=== PATIENT | female | born 1950 | race Caucasian/White ===

== ENCOUNTER 2017-05-17 06:07 | Emergency (ER) | payer BC ==
[~2017-05-17] VITALS: Ht 160 cm; Wt 76.2 kg
[~2017-05-17 06:07] MED LIST: ANASTROZOLE1 MG PO; ARIMIDEX1 MG PO; CIPROFLOXACIN500 M2 ORAL; DIOVAN HCT 1601 EACH PO; DOXYCYCLINE; DOXYCYCLINE HYC20 MG PO; HYDROCHLOROTH12.5 M2 ORAL; NORCO 5-325 TA1 EACH ORAL; PROBIOTIC; RANITIDINE HCL150 MG PO; SIMVASTATIN80 MG PO; STOOL SOFTENER1 EAC3 PO; SYNALAR 0.01%15 GM EXT; [UNRECOGNIZED DRUG - CODE] PO; voltaren gel TOPIC
[2017-05-17 06:19] VITALS: BP 120/90
[2017-05-17] MEDS ORDERED: Ketorolac 30mg Inj IV ONE (06:45)
--- NOTE | 2017-05-17 06:47 | Emergency Room Report ---
History of Present Illness General Chief Complaint: Abdominal Pain Source: Patient Present Illness HPI The patient presents with abdominal pain. It doesn't feel like heartburn pain. It is LLQ. It's been going off and on for 6 months but worsened since last Thursday. The pain is now 4/10. She denies any nausea vomiting diarrhea constipation. She's on stool softener. She ate red meat early in the week and associates the worsened pain with that. She feels pressure and gas-like. Doesn 't radiate. She has a history of kidney stones but this doesn't feel like that. In addition she had pancreatitis after having her gallbladder removed and this feels different than that pain also. She denies fevers and chills. She denies any chest pain, shortness of breath, cough, sore throat, rashes. The patient has hypertension high cholesterol and diabetes. Her sugars have been well controlled. She denies any renal problems in the past. 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 Now: No Reviewed Nursing Documentation: PMH: Agreed, PSxH: Agreed Nursing Documentation-PMH Hx Cardiac Problems: Yes - HYPERCHOLESTEREMIA Hx Hypertension: Yes Hx Diabetes: Yes Hx Cancer: Yes - Right Breast Hx Gastrointestinal Problems: Yes - pancreatitis, gall bladder removed Hx Neurological Problems: No Review of Systems All Other Systems: negative except mentioned in HPI Physical Exam Vital Signs Date Time Temp Pulse Resp B/P (MAP) Pulse Ox O2 Delivery O2 Flow Rate FiO2 05/17/17 06:14 98.6 116 16 120/90 98 Room Air Sp02 EP Interpretation: reviewed, normal General Appearance: well appearing, no apparent distress, GCS 15 Head: normocephalic Eyes: bilateral eye normal inspection, bilateral eye PERRL ENT: moist mucus membranes Neck: supple Respiratory: lungs clear, normal breath sounds Cardiovascular #1: regular rate, rhythm Cardiovascular #2: 2+ radial (R) Gastrointestinal: no rebound, guarding, tenderness - Left lower quadrant Musculoskeletal: back normal, gait/station normal, normal range of motion Neurologic: alert, oriented x3, grossly normal Psychiatric: mood/affect normal Skin: normal inspection, warm/dry Medical Decision Making Diagnostic Impression: Primary Impression: Diverticulitis Qualified Codes: K57.32 - Diverticulitis of large intestine without perforation or abscess without bleeding Additional Impression: UTI (urinary tract infection) Qualified Codes: N30.00 - Acute cystitis without hematuria ER Course Patient presents with left lower quadrant pain is been off and on for 6 months. Differential includes diverticulitis, gastroenteritis, urinary tract infection , renal stone, other colonic problems including colitis. Evaluation will be with labs and urinalysis. Also a CT scan of the abdomen and pelvis will be performed with oral and IV contrast. She'll be treated with IV hydration and also Toradol. WBC normal. Normal renal function. + pyuria. Glucose 110. CT with diverticulitis. Antibiotics begun for UTI and diverticulitis. Not surgical exam at this time. Patient improved with treatment. Patient stable for outpatient observation and treatment. Laboratory Tests Test 05/17/17 06:46 05/17/17 07:15 Urine Color Yellow Urine Appearance Slightly cloudy Urine pH 6 (4.5-8.0) Urine Specific Devol 1.015 (1.005-1.035) Urine Protein 2+ (NEGATIVE) H Urine Glucose (UA) Negative (NEGATIVE) Urine Ketones 3+ (NEGATIVE) H Urine Occult Blood 2+ (NEGATIVE) H Urine Nitrite Negative (NEGATIVE) Urine Bilirubin Negative (NEGATIVE) Urine Urobilinogen 1 MG/DL (0.0-1.0) H Urine Leukocyte Esterase 3+ (NEGATIVE) H Urine RBC 10-15 /HPF (0 - 2) H Urine WBC 15-20 /HPF (0 - 2) H Urine Squamous Epithelial Cells Few /LPF (NONE/OCC) Urine Bacteria Few /HPF (NONE) Urine Mucus Occasional /LPF White Blood Count 8.1 K/UL (4.8-10.8) Red Blood Count 4.71 M/UL (4.20-5.40) Hemoglobin 14.9 G/DL (12.0-16.0) Hematocrit 45.4 % (37.0-47.0) Mean Corpuscular Volume 96 FL (80-99) Mean Corpuscular Hemoglobin 31.5 PG (27.0-31.0) H Mean Corpuscular Hemoglobin Concent 32.7 G/DL (32.0-36.0) Red Cell Distribution Width 12.0 % (11.6-14.8) Platelet Count 153 K/UL (150-450) Mean Platelet Volume 12.2 FL (6.5-10.1) H Neutrophils (%) (Auto) 77.5 % (45.0-75.0) H Lymphocytes (%) (Auto) 11.5 % (20.0-45.0) L Monocytes (%) (Auto) 8.9 % (1.0-10.0) Eosinophils (%) (Auto) 1.1 % (0.0-3.0) Basophils (%) (Auto) 0.9 % (0.0-2.0) Prothrombin Time 9.7 SEC (9.30-11.50) Prothrombin Time INR 0.9 (0.9-1.1) PTT 31 SEC (23-33) Sodium Level 139 mEQ/L (135-145) Potassium Level 4.4 mEQ/L (3.4-4.9) Chloride Level 98 mEQ/L (98-107) Carbon Dioxide Level 30 mEQ/L (20-30) Anion Gap 11 (5-15) Blood Urea Nitrogen 13 mg/dL (7-23) Creatinine 0.7 mg/dL (0.5-0.9) Estimate Glomerular Filtration Rate > 60 mL/min (>60) Glucose Level 110 mg/dL (74-106) H Calcium Level 9.8 mg/dL (8.6-10.2) Total Bilirubin 0.9 mg/dL (0.0-1.2) Aspartate Amino Transferase (AST) 13 U/L (5-40) Alanine Aminotransferase (ALT) 11 U/L (3-33) Alkaline Phosphatase 56 U/L (35-104) Total Protein 7.2 g/dL (6.6-8.7) Albumin 4.4 g/dL (3.5-5.2) Globulin 2.8 g/dL Albumin/Globulin Ratio 1.5 (1.0-2.7) Lipase 14 U/L (< 60) CT/MRI/US Diagnostic Results CT/MRI/US Diagnostic Results : Imaging Test Ordered: abd pelvis Impression diverticulitis Impression: Acute diverticulitis involving the descending colon. Mild bowel wall thickening , pericolonic inflammatory changes and small amount of free fluid is seen adjacent to the distal descending colon. No abscess. No free air. No bowel obstruction. Incidental findings include hepatomegaly, status post cholecystectomy, right renal cysts, umbilical hernia containing fat, enlarged fibroid uterus, aortic calcifications. Last Vital Signs Date Time Temp Pulse Resp B/P (MAP) Pulse Ox O2 Delivery O2 Flow Rate FiO2 05/17/17 11:14 98.6 94 18 112/75 96 Room Air Status: improved Disposition: HOME, SELF-CARE Condition: Improved Scripts Metronidazole* (FLAGYL*) 500 Mg Tablet 500 MG ORAL TID, #21 TAB Prov: Yuan Gregg M.D. 05/17/17 Cephalexin* (KEFLEX*) 500 Mg Capsule 500 MG ORAL Q6H, #28 CAP 0 Refills Prov: Yuan Gregg M.D. 05/17/17 Yuan Gregg M.D. May 17, 2017 06:47
[2017-05-17 07:35] LABS: BASOPHILS % (AUTO) 0.9 % (0.0-2.0); EOSINOPHILS % (AUTO) 1.1 % (0.0-3.0); LYMPHOCYTES % (AUTO) 11.5 % (20.0-45.0); MEAN CORPUSCULAR HEMOGLOBIN 31.5 PG (27.0-31.0); MEAN CORPUSCULAR HGB CONC 32.7 G/DL (32.0-36.0); MEAN CORPUSCULAR VOLUME 96 FL (80-99); MEAN PLATELET VOLUME 12.2 FL (6.5-10.1); MONOCYTES % (AUTO) 8.9 % (1.0-10.0); NEUTROPHILS % (AUTO) 77.5 % (45.0-75.0); PLATELET COUNT 153 K/UL (150-450); RED BLOOD COUNT 4.71 M/UL (4.20-5.40); WHITE BLOOD COUNT 8.1 K/UL (4.8-10.8)
[2017-05-17 07:46] LABS: APPEARANCE,URINE SLIGHTLY CLOUDY; KETONES,URINE 3+ (NEGATIVE); LEUKOCYTE ESTERASE ,URINE 3+ (NEGATIVE); NITRITE,URINE NEGATIVE (NEGATIVE); PH,URINE 6 (4.5-8.0); PROTEIN,URINE 2+ (NEGATIVE); UROBILINOGEN,URINE 1 MG/DL (0.0-1.0)
[2017-05-17 07:49] LABS: ALANINE AMINOTRANSFERASE 11 U/L (3-33); ALBUMIN/GLOBULIN RATIO 1.5 (1.0-2.7); ANION GAP 11 (5-15); ASPARTATE AMINO TRANSFERASE 13 U/L (5-40); CALCIUM 9.8 mg/dL (8.6-10.2); CARBON DIOXIDE 30 mEQ/L (20-30); CHLORIDE 98 mEQ/L (98-107); CREATININE 0.7 mg/dL (0.5-0.9); GLOMERULAR FILTRATION RATE > 60 mL/min (>60); HEMOLYSIS 6; LIPASE 14 U/L (< 60); POTASSIUM 4.4 mEQ/L (3.4-4.9); SODIUM 139 mEQ/L (135-145); TOTAL PROTEIN 7.2 g/dL (6.6-8.7)
[2017-05-17 07:56] LABS: BACTERIA,URINE FEW /HPF; MUCUS,URINE OCCASIONAL /LPF (NONE/OCC); SQUAMOUS EPITHELIAL CELL,UR FEW /LPF (NONE/OCC); WBC,URINE 15-20 /HPF (0 - 2)
[2017-05-17 08:30] LABS: INR 0.9 (0.9-1.1); PROTHROMBIN TIME 9.7 SEC (9.30-11.50)
[2017-05-17] MEDS ORDERED: cefTRIAXone 1 GM in NS 55 ML IVPB ONE (08:45)
[2017-05-17 10:00] VITALS: BP 115/82
--- NOTE | 2017-05-17 10:17 | Diagnostic Imaging Report ---
Indication: Abdominal pain Comparison: CT abdomen pelvis 11/03/2014 Technique: Contiguous helical CT images through the abdomen and pelvis was performed with intravenous and oral contrast. Axial, coronal and sagittal reconstructions were reformatted. CT Dose: Total DLP: A 51 mGycm; Total CTDI volume 18.6 Findings: Liver is enlarged in size measuring 18.5 cm in craniocaudal dimension. No focal lesions in the liver identified. Portal vein is patent. No biliary dilation. Patient is status post cholecystectomy, unchanged. Spleen is normal. Pancreas is normal. Adrenal glands are normal. Kidneys are without hydronephrosis. No perinephric stranding. Right renal cysts are noted. Diverticulosis is noted throughout the descending colon. In the distal descending colon, there are some inflammatory changes with a small amount of fluid noted in the left paracolic gutter. Findings are likely due to diverticulitis. There is some localized mild bowel thickening in this area. No bowel obstruction. No free air. No abscess. Normal appendix. Umbilical hernia containing fat only is again seen, unchanged. Urinary bladder is normal. Mildly enlarged uterus containing fibroids is seen. Lung bases are clear. No acute osseous abnormalities. No significant lymphadenopathy. Impression: Acute diverticulitis involving the descending colon. Mild bowel wall thickening, pericolonic inflammatory changes and small amount of free fluid is seen adjacent to the distal descending colon. No abscess. No free air. No bowel obstruction. Incidental findings include hepatomegaly, status post cholecystectomy, right renal cysts, umbilical hernia containing fat, enlarged fibroid uterus, aortic calcifications.
[2017-05-17] MEDS ORDERED: KEFLEX500 MG ORAL (10:52)
[2017-05-17] MEDS ORDERED: METRONIDAZOLE500 MG ORAL (10:52)
[2017-05-17 11:00] VITALS: BP 112/75
[2017-05-17] MEDS ORDERED: metroNIDAZOLE 500mg tab ORAL ONE (11:00)
[2017-05-17 11:14] VITALS: BP 112/75
== END 2017-05-17 11:15 | disposition home or self-care (01) ==
LOC: EMR 06:51
DX: K57.32 Diverticulitis of large intestine without perforation or abscess without bleeding (principal); N39.0 Urinary tract infection, site not specified; I10 Essential (primary) hypertension; E11.9 Type 2 diabetes mellitus without complications; E78.00 Pure hypercholesterolemia, unspecified; Z87.19 Personal history of other diseases of the digestive system; R16.0 Hepatomegaly, not elsewhere classified; Z90.49 Acquired absence of other specified parts of digestive tract; N28.1 Cyst of kidney, acquired; K42.9 Umbilical hernia without obstruction or gangrene; D25.9 Leiomyoma of uterus, unspecified
CPT/HCPCS: 36415; 74177; 80053; 81003; 83690; 85025; 85610; 85730; 86850; 86900; 86901; 87086; 96361; 96365; 96375; 99284; J0696; J1885; Q9967

== ENCOUNTER 2018-03-08 11:23 | Emergency (ER) | payer BC ==
[~2018-03-08] VITALS: Ht 160 cm; Wt 83.9 kg
[~2018-03-08 11:23] MED LIST changes: +KEFLEX500 MG ORAL; +METRONIDAZOLE500 MG ORAL
[2018-03-08 11:58] VITALS: BP 155/90
[2018-03-08 12:16] LABS: BASOPHILS % (AUTO) 1.9 % (0.0-2.0); HEMATOCRIT 42.3 % (37.0-47.0); HEMOGLOBIN 14.6 G/DL (12.0-16.0); LYMPHOCYTES % (AUTO) 20.6 % (20.0-45.0); MEAN CORPUSCULAR VOLUME 93 FL (80-99); MONOCYTES % (AUTO) 7.4 % (1.0-10.0); NEUTROPHILS % (AUTO) 67.2 % (45.0-75.0); PLATELET COUNT 145 K/UL (150-450); RED BLOOD COUNT 4.55 M/UL (4.20-5.40); RED CELL DISTRIBUTION WIDTH 12.5 % (11.6-14.8); WHITE BLOOD COUNT 7.4 K/UL (4.8-10.8)
[2018-03-08 12:32] LABS: ANION GAP 12 mmol/L (5-15); BLOOD UREA NITROGEN 19 mg/dL (7-18); CALCIUM 9.2 MG/DL (8.5-10.1); CARBON DIOXIDE 26 MMOL/L (21-32); CHLORIDE 101 MMOL/L (98-107); CREATININE 0.7 MG/DL (0.55-1.30); POTASSIUM 4.1 MMOL/L (3.5-5.1); SODIUM 138 MMOL/L (136-145)
--- NOTE | 2018-03-08 12:39 | Emergency Room Report ---
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 Apparently the cost member was arguing with the instructor. She states that she got very angry and was arguing with this other class member. She states that during that time she felt her right leg get weak and she became very lightheaded and was concerned she was going to pass out. She states that she did sit down and relax and felt much better. However, the other members of the class very concerned and felt that she should get evaluated. She states that this time she feels back to normal. She denies recent illness. She denies chest pain or shortness of breath. She denies abdominal pain. She has no other complaints. Allergies: Uncoded Allergies: TAPE (Allergy, Intermediate, Rash, 05/10/12) SURGICAL TAPE (Allergy, Unknown, BREAST SURGERY DIDN'T HEAL, 07/03/15) Patient History Past Medical History: see triage record, DM, HTN Social History: Denies: smoking, alcohol use, drug use Reviewed Nursing Documentation: PMH: Agreed; PSxH: Agreed Nursing Documentation-PMH Past Medical History: No History, Except For Hx Hypertension: Yes - kidney stones Hx Diabetes: Yes Hx Cancer: Yes - Right Breast Hx Gastrointestinal Problems: Yes - pancreatitis, gall bladder removed Hx Neurological Problems: No Review of Systems All Other Systems: negative except mentioned in HPI Physical Exam Vital Signs Date Time Temp Pulse Resp B/P (MAP) Pulse Ox O2 Delivery O2 Flow Rate FiO2 03/08/18 11:27 98.4 104 18 161/90 92 Room Air 98.4 Sp02 EP Interpretation: reviewed, normal General Appearance: no apparent distress, alert, GCS 15, non-toxic Head: normocephalic, atraumatic Eyes: bilateral eye normal inspection, bilateral eye PERRL ENT: hearing grossly normal, normal pharynx, no angioedema, normal voice Neck: full range of motion, supple/symm/no masses Respiratory: chest non-tender, lungs clear, normal breath sounds, speaking full sentences Cardiovascular #1: regular rate, rhythm, no edema Gastrointestinal: normal bowel sounds, non tender, soft, non-distended, no guarding, no rebound Rectal: deferred Musculoskeletal: back normal, gait/station normal, normal range of motion, non- tender Neurologic: alert, oriented x3, responsive, motor strength/tone normal, sensory intact, speech normal Psychiatric: judgement/insight normal, memory normal, mood/affect normal, no suicidal/homicidal ideation Skin: normal color, no rash, warm/dry, well hydrated Medical Decision Making Diagnostic Impression: Primary Impression: Pre-syncope ER Course I suspect the pre-syncope that the patient is presenting with is a nonemergent in etiology. Regarding the history, the patient has no history of structural heart disease or coronary artery disease, no family history of sudden , has no shortness of breath, and the syncope is not exertional. On physical exam , the patient is not hypotensive, has no findings of CHF, and no significant cardiac murmur suggestive of valvular heart disease or cardiac outflow obstruction. The patient reports no history of seizure or head trauma. EKG showed no evidence of concerning findings of QT prolongation, Brugada syndrome or significant ST changes suggestive of acute ischemia, dysrhythmias or significant conduction abnormalities. On laboratory evaluation, blood sugar was normal and the patient is not anemic. The patient was counseled that, though unlikely, the possibility of an emergent cause of syncope may be present and that the patient should return immediately if symptoms persist or worsen. I believe the patient is stable for discharge to followup with her PMD for further workup. Laboratory Tests Test 03/08/18 11:52 White Blood Count 7.4 K/UL (4.8-10.8) Red Blood Count 4.55 M/UL (4.20-5.40) Hemoglobin 14.6 G/DL (12.0-16.0) Hematocrit 42.3 % (37.0-47.0) Mean Corpuscular Volume 93 FL (80-99) Mean Corpuscular Hemoglobin 32.1 PG (27.0-31.0) H Mean Corpuscular Hemoglobin Concent 34.5 G/DL (32.0-36.0) Red Cell Distribution Width 12.5 % (11.6-14.8) Platelet Count 145 K/UL (150-450) L Mean Platelet Volume 8.9 FL (6.5-10.1) Neutrophils (%) (Auto) 67.2 % (45.0-75.0) Lymphocytes (%) (Auto) 20.6 % (20.0-45.0) Monocytes (%) (Auto) 7.4 % (1.0-10.0) Eosinophils (%) (Auto) 3.0 % (0.0-3.0) Basophils (%) (Auto) 1.9 % (0.0-2.0) Sodium Level 138 MMOL/L (136-145) Potassium Level 4.1 MMOL/L (3.5-5.1) Chloride Level 101 MMOL/L (98-107) Carbon Dioxide Level 26 MMOL/L (21-32) Anion Gap 12 mmol/L (5-15) Blood Urea Nitrogen 19 mg/dL (7-18) H Creatinine 0.7 MG/DL (0.55-1.30) Estimate Glomerular Filtration Rate > 60 mL/min (>60) Glucose Level 100 MG/DL (74-106) Calcium Level 9.2 MG/DL (8.5-10.1) Total Bilirubin 0.3 MG/DL (0.2-1.0) Aspartate Amino Transferase (AST) 18 U/L (15-37) Alanine Aminotransferase (ALT) 24 U/L (12-78) Alkaline Phosphatase 67 U/L (46-116) Total Creatine Kinase 118 U/L (26-308) Creatine Kinase MB 1.3 NG/ML (0.0-3.6) Creatine Kinase MB Relative Index 1.1 Troponin I 0.004 ng/mL (0.000-0.056) Total Protein 7.4 G/DL (6.4-8.2) Albumin 4.1 G/DL (3.4-5.0) Globulin 3.3 g/dL Albumin/Globulin Ratio 1.2 (1.0-2.7) EKG Diagnostic Results Rate: normal Rhythm: NSR ST Segments: no acute changes Rhythm Strip Diag. Results EP Interpretation: yes Rate: 90's Rhythm: NSR, no PVC's, no ectopy Last Vital Signs Date Time Temp Pulse Resp B/P (MAP) Pulse Ox O2 Delivery O2 Flow Rate FiO2 03/08/18 11:58 99.8 97 20 155/90 98 Room Air 99.8 Status: improved Disposition: HOME, SELF-CARE Condition: Improved Referrals: NON PHYSICIAN (PCP) Patient Instructions: Lissett Rodriguez DO Mar 08, 2018 12:39
[2018-03-08 12:51] LABS: ALANINE AMINOTRANSFERASE 24 U/L (12-78); ALBUMIN 4.1 G/DL (3.4-5.0); ALBUMIN/GLOBULIN RATIO 1.2 (1.0-2.7); ALKALINE PHOSPHATASE 67 U/L (46-116); ASPARTATE AMINO TRANSFERASE 18 U/L (15-37); BILIRUBIN,TOTAL 0.3 MG/DL (0.2-1.0); CKMB 1.3 NG/ML (0.0-3.6); CREATINE KINASE 118 U/L (26-308)
--- NOTE | 2018-03-08 12:57 | Diagnostic Imaging Report ---
Indication: Weakness Technique: XRAY Chest 1v Comparison: None Findings: Heart size and mediastinal contours are within normal limits given technique. There is no focal consolidation, pneumothorax or pleural effusion. Degenerative changes noted in the spine. Osseous structures demonstrate no acute abnormality. Some surgical clips noted in the right breast, possibly from prior biopsy. Impression: No radiographic evidence of acute cardiopulmonary disease.
[2018-03-08 14:22] VITALS: BP 134/98
--- NOTE | 2018-03-10 15:47 | Cardiology Report ---
APPROVED REPORT EKG Measurement Heart [id number] Normal sinus rhythm Normal ECG
[2018-03-25] MEDS ORDERED: POTASSIUM 25 M25 ME1 PO (09:07)
[2018-03-25] MEDS ORDERED: MAGNESIUM250 M2 PO (09:07)
[2018-03-25] MEDS ORDERED: ALLOPURINOL300 M1 ORAL (09:07)
[2018-03-25] MEDS ORDERED: METFORMIN HCL500 M1 ORAL (09:07)
== END 2018-03-08 14:25 | disposition home or self-care (01) ==
LOC: EMR 11:41
DX: R55 Syncope and collapse (principal); R42 Dizziness and giddiness; E11.9 Type 2 diabetes mellitus without complications; I10 Essential (primary) hypertension; Z85.3 Personal history of malignant neoplasm of breast; Z87.442 Personal history of urinary calculi
CPT/HCPCS: 36415; 71045; 80053; 82550; 82553; 84484; 85025; 93005; 96360; 99284

== ENCOUNTER 2018-03-26 07:00 | Day surgery (SDC) | payer BC ==
[~2018-03-26] VITALS: Ht 160 cm; Wt 81.6 kg
[2018-03-26] VITALS (8 sets, daily range): BP systolic 116–163; BP diastolic 83–109
[~2018-03-26 07:00] MED LIST changes: +ALLOPURINOL300 M1 ORAL; +MAGNESIUM250 M2 PO; +METFORMIN HCL500 M1 ORAL; +POTASSIUM 25 M25 ME1 PO
[2018-03-26] MEDS ORDERED: DOXYCYCLINE PO (07:47)
[2018-03-26] MEDS ORDERED: VITAMIN D400 INTLU ORAL (07:55)
[2018-03-26] MEDS ORDERED: Propofol 200mg/20ml IV ONE (08:57)
[2018-03-26] MEDS ORDERED: Lidocaine 1% MPF 10mg/ml 5ml ONE (08:57)
[2018-03-26] MEDS ORDERED: fentaNYL 100 mcg/2 mL IV ONE (08:57)
[2018-03-26] MEDS ORDERED: LR 1000ml ONE (09:00)
--- NOTE | 2018-03-26 09:05 | Short Stay Surgery H&P ---
History of Present Illness History of Present Illness Chief Complaint see recent office note HPI Lakshmi Garner is a 68 year old female who was admitted on for Abdominal Pain / Screening Patient History Allergies: Uncoded Allergies: SURGICAL TAPE (Allergy, Intermediate, BREAST SURGERY DIDN'T HEAL, 03/26/18) TAPE (Allergy, Intermediate, Rash, 05/10/12) Medication History Scheduled Allopurinol* (Allopurinol*), 300 MG ORAL DAILY, (Reported) Anastrozole (Arimidex), 1 MG PO DAILY, (Reported) Magnesium Oxide (Magnesium), 1 TAB-CAP PO DAILY, (Reported) Metformin Hcl* (Metformin Hcl*), 500 MG ORAL DAILY, (Reported) Potassium Bicarbonate/Cit Ac (Potassium 25 Meq Tablet Eff), 15 MEQ PO DAILY, ( Reported) Simvastatin (Zocor), 80 MG PO QHS, (Reported) Vitamin D (Vitamin D3), 5,000 UNITS ORAL DAILY, (Reported) [Doxycycline], 20 MG PO DAILY, (Reported) Discontinued Medications Cephalexin* (Keflex*), 500 MG ORAL Q6H Discontinued Reason: Therapy completed Ciprofloxacin Hcl* (Ciprofloxacin Hcl*), 500 MG ORAL Q12H Discontinued Reason: Therapy completed Hydrochlorothiazide* (Hydrochlorothiazide*), 12.5 MG ORAL DAILY, (Reported) Discontinued Reason: discontinued med Metronidazole* (Flagyl*), 500 MG ORAL TID Discontinued Reason: Therapy completed Sennosides/Docusate Sodium (Stool Softener Tablet), 1 EACH PO DAILY, (Reported) Discontinued Reason: Pt stopped taking med Physical Exam Vital Signs Last Vital Signs Date Time Temp Pulse Resp B/P (MAP) Pulse Ox O2 Delivery O2 Flow Rate FiO2 03/26/18 07:43 Room Air 03/26/18 07:38 99.0 92 18 116/83 (94 95 99.0 Plan Attestation Are the patient's medical conditions optimized for surgery? Kvng Ramirez MD Mar 26, 2018 09:05
--- NOTE | 2018-03-26 09:05 | Pre-Procedure Note/Attestation ---
Pre-Procedure Note/Attestation Complete Prior to Procedure Planned Procedure: not applicable Procedure Narrative: esophagogastroduodenoscopy and colonoscopy Indications for Procedure Pre-Operative Diagnosis: screening colon, GERD Attestation I attest that I discussed the nature of the procedure; its benefits; risks and complications; and alternatives (and the risks and benefits of such alternatives ), prior to the procedure, with the patient (or the patient's legal agricultural sales representative). I attest that, if there was a reasonable possibility of needing a blood transfusion, the patient (or the patient's legal agricultural sales representative) was given the [facility] standardized written summary, pursuant to the Jaylon [place] Blood Safety Act ([place] Health and Safety Code # 1645, as amended). I attest that I re-evaluated the patient just prior to the surgery and that there has been no change in the patient's H&P, except as documented below: Kvng Ramirez MD Mar 26, 2018 09:05
--- NOTE | 2018-03-26 09:09 | Short Stay Surgery H&P ---
History of Present Illness History of Present Illness Chief Complaint screening colon, GERD HPI Lakshmi Garner is a 68 year old female who was admitted on for Abdominal Pain / Screening Patient History Allergies: Uncoded Allergies: SURGICAL TAPE (Allergy, Intermediate, BREAST SURGERY DIDN'T HEAL, 03/26/18) TAPE (Allergy, Intermediate, Rash, 05/10/12) PAST MEDICAL HISTORY: (1) Diverticulitis (2) Kidney stone (3) Hematuria (4) UTI (urinary tract infection) Medication History Scheduled Allopurinol* (Allopurinol*), 300 MG ORAL DAILY, (Reported) Anastrozole (Arimidex), 1 MG PO DAILY, (Reported) Magnesium Oxide (Magnesium), 1 TAB-CAP PO DAILY, (Reported) Metformin Hcl* (Metformin Hcl*), 500 MG ORAL DAILY, (Reported) Potassium Bicarbonate/Cit Ac (Potassium 25 Meq Tablet Eff), 15 MEQ PO DAILY, ( Reported) Simvastatin (Zocor), 80 MG PO QHS, (Reported) Vitamin D (Vitamin D3), 5,000 UNITS ORAL DAILY, (Reported) [Doxycycline], 20 MG PO DAILY, (Reported) Discontinued Medications Cephalexin* (Keflex*), 500 MG ORAL Q6H Discontinued Reason: Therapy completed Ciprofloxacin Hcl* (Ciprofloxacin Hcl*), 500 MG ORAL Q12H Discontinued Reason: Therapy completed Hydrochlorothiazide* (Hydrochlorothiazide*), 12.5 MG ORAL DAILY, (Reported) Discontinued Reason: MD discontinued med Metronidazole* (Flagyl*), 500 MG ORAL TID Discontinued Reason: Therapy completed Sennosides/Docusate Sodium (Stool Softener Tablet), 1 EACH PO DAILY, (Reported) Discontinued Reason: Pt stopped taking med Review of Systems Cardiovascular: Reports: no symptoms Respiratory: Reports: no symptoms Skeletal: Reports: no symptoms Gastrointestinal: Reports: gastro esophageal reflux disease Genitourinary: Reports: no symptoms Neurologic: Reports: no symptoms Hematologic: Reports: no symptoms Physical Exam Vital Signs Last Vital Signs Date Time Temp Pulse Resp B/P (MAP) Pulse Ox O2 Delivery O2 Flow Rate FiO2 03/26/18 07:43 Room Air 03/26/18 07:38 99.0 92 18 116/83 (94) 95 99.0 Skin: normal HENT: normal Heart: normal Lungs: normal Abdomen: normal Extremities: normal Plan Plan of Care esophagogastroduodenoscopy and colonoscopy Attestation Are the patient's medical conditions optimized for surgery? Attestation Response: yes Kvng Rmairez MD Mar 26, 2018 09:09
[2018-03-26] MEDS ORDERED: LR 1000ml 1,000 ML IVLG SCH (09:23)
[2018-03-26] MEDS ORDERED: fentaNYL 100 mcg/2 mL IV PRN (09:30)
[2018-03-26] MEDS ORDERED: DiphenhydrAMINE 50mg/ml Inj IVP PRN (09:30)
--- NOTE | 2018-03-26 09:31 | Anethesia Preoperative Eval ---
Anesthesia Pre-op PMH/ROS General Date of Evaluation: Mar 26, 2018 Time of Evaluation: 09:00 Anesthesiologist: ASA Score: ASA 3 Mallampati Score Class I : Soft palate, uvula, fauces, pillars visible Class II: Soft palate, uvula, fauces visible Class III: Soft palate, base of uvula visible Class IV: Only hard plate visible Mallampati Classification: Class II Surgeon: aditya Diagnosis: abdominal pain Surgical Procedure: endoscopy, colonoscopy Social History: alcohol use Allergies: Uncoded Allergies: SURGICAL TAPE (Allergy, Intermediate, BREAST SURGERY DIDN'T HEAL, 03/26/18) TAPE (Allergy, Intermediate, Rash, 05/10/12) Past Medical History Cardiovascular: Reports: HTN; Denies: CAD, VT, valve dz, arrhythmia, other Pulmonary: Reports: other - bronchitis; Denies: asthma, COPD, GIRISH Gastrointestinal/Genitourinary: Reports: GERD; Denies: CRI, ESRD, other Neurologic/Psychiatric: Reports: depression/anxiety; Denies: dementia, CVA, TIA, other Endocrine: Reports: DM; Denies: hypothyroidism, steroids, other Hematology/Immune: Denies: anemia, DVT, bleeding disorder, other Other: obesity Anesthesia Pre-op Phys. Exam Physician Exam Last Vital Signs Date Time Temp Pulse Resp B/P (MAP) Pulse Ox O2 Delivery O2 Flow Rate FiO2 03/26/18 07:43 Room Air 03/26/18 07:38 99.0 92 18 116/83 (94) 95 99.0 Constitutional: NAD Cardiovascular: RRR Respiratory: CTA Gastrointestinal: S/NT/ND Airway Exam Mallampati Score: Class II MO: full ROM: full Dentures: upper Anesthesia Pre-op A/P Risk Assessment & Plan Assessment: asa 3 Plan: mas Status Change Before Surgery: No Pre-Antibiotics Drug: none Sushma Collins M.D. Mar 26, 2018 09:31
--- NOTE | 2018-03-26 09:36 | Immediate Post-Op Evaluation ---
Immediate Post-Op Evalulation Immediate Post-Op Evalulation Procedure: colonoscopt, endoscopy Date of Evaluation: Mar 26, 2018 Time of Evaluation: 09:41 IV Fluids: 200ml Blood Products: 0 Estimated Blood Loss: 0 Urinary Output: 0 Blood Pressure Systolic: 144 Blood Pressure Diastolic: 95 Pulse Rate: 101 Respiratory Rate: 18 O2 Sat by Pulse Oximetry: 98 Temperature (Fahrenheit): 98.7 Pain Score (1-10): 5 Nausea: No Vomiting: No Patient Status: awake, patent, none Hydration Status: adequate Drug: none Sushma Collins M.D. Mar 26, 2018 09:36
--- NOTE | 2018-03-26 09:42 | Endoscopy Procedure Note ---
Endoscopy Procedure Note General Indication for Procedure: screening colon, GERD Procedures Performed: EGD, colonoscopy Operative Findings/Diagnosis: gastritis, one polyp Specimen: yes Pt Tolerated Procedure Well: Yes Estimated Blood Loss: none Anesthesia Anesthesiologist: see chart Anesthesia: MAC Inserted Devices Implant(s) used?: No Quality Quality of Bowel Preparation: Good Did scope reach the cecum?: Yes Was there any complications?: No GI Core Measures 50 yrs or older w/o bx or poly: No 10yrs. F/U not recommended: Yes If not recommended, why?: Above average risk 10 yrs. F/U needed: Yes 18 years or older w/prev. colo: No Kvng Ramirez MD Mar 26, 2018 09:42
[2018-03-26 10:06] LABS: BASOPHILS % (AUTO) 1.9 % (0.0-2.0); EOSINOPHILS % (AUTO) 1.4 % (0.0-3.0); HEMATOCRIT 45.8 % (37.0-47.0); HEMOGLOBIN 15.4 G/DL (12.0-16.0); LYMPHOCYTES % (AUTO) 23.9 % (20.0-45.0); MEAN CORPUSCULAR VOLUME 92 FL (80-99); MONOCYTES % (AUTO) 7.7 % (1.0-10.0); NEUTROPHILS % (AUTO) 65.2 % (45.0-75.0); PLATELET COUNT 177 K/UL (150-450); RED BLOOD COUNT 4.96 M/UL (4.20-5.40); RED CELL DISTRIBUTION WIDTH 11.6 % (11.6-14.8); WHITE BLOOD COUNT 5.6 K/UL (4.8-10.8)
--- NOTE | 2018-03-26 10:13 | 48 Hour Post Anesthesia Eval ---
Post Anesthesia Evaluation Procedure: colonoscopt, endoscopy Date of Evaluation: Mar 26, 2018 Time of Evaluation: 10:00 Blood Pressure Systolic: 145 0: 103 Pulse Rate: 97 Respiratory Rate: 19 Temperature (Fahrenheit): 98.7 O2 Sat by Pulse Oximetry: 97 Airway: patent Nausea: No Vomiting: No Pain Intensity: 5 If pain is > 6 Comment: chronic back pain Hydration Status: adequate Mental Status/LOC: patient returned to baseline Post-Anesthesia Complications: none Follow-up care needed: N/A Sushma Collins M.D. Mar 26, 2018 10:13
[2018-03-26 10:26] LABS: % IRON SATURATION 14 % (15-50); IRON 45 ug/dL (50-175); TOTAL IRON BINDING CAPACITY 315 ug/dL (250-450)
[2018-03-26 10:34] LABS: ALANINE AMINOTRANSFERASE 26 U/L (12-78); ALBUMIN/GLOBULIN RATIO 1.2 (1.0-2.7); ALKALINE PHOSPHATASE 50 U/L (46-116); ANION GAP 3 mmol/L (5-15); ASPARTATE AMINO TRANSFERASE 21 U/L (15-37); BILIRUBIN,TOTAL 0.5 MG/DL (0.2-1.0); BLOOD UREA NITROGEN 10 mg/dL (7-18); CALCIUM 9.3 MG/DL (8.5-10.1); CARBON DIOXIDE 32 MMOL/L (21-32); CHLORIDE 102 MMOL/L (98-107); CREATININE 0.8 MG/DL (0.55-1.30); POTASSIUM 4.3 MMOL/L (3.5-5.1); SODIUM 137 MMOL/L (136-145)
--- NOTE | 2018-03-31 16:06 | Cardiology Report ---
APPROVED REPORT EKG Measurement Heart [id number] Normal sinus rhythm Normal ECG
--- NOTE | 2018-04-01 09:00 | Procedure Note ---
DATE OF PROCEDURE: 03/26/2018 SURGEON: Kvng Ramirez M.D. PROCEDURE: Upper endoscopy with biopsy and colonoscopy with biopsy. ANESTHESIA: Per anesthesiologist. Please see anesthesia sheet. INSTRUMENT: Olympus adult flexible upper endoscope and colonoscope. INDICATION: Screening colonoscopy evaluation, stool OB positive, chronic GERD. The procedure, risks, benefits, and possible consequences, including hemorrhage, aspiration, perforation and infection, and alternative treatments, were explained to the patient/legal guardian by Dr. Kvng Ramirez and the patient/legal guardian understood and accepted these risks. DESCRIPTION OF PROCEDURE: After informed consent was obtained and the patient was adequately sedated, Olympus upper endoscope was advanced from the mouth into the second portion of the duodenum and retroflexion was performed in the stomach. The patient had diffuse gastritis. Random biopsy from antrum and body was obtained to rule out H. pylori infection. Otherwise, the rest of the upper endoscopic examination grossly looked within normal limits. At this time, the upper endoscope was retrieved. The patient was turned over for colonoscopy. First, rectal exam was performed which was positive for internal hemorrhoids. Then, the scope was advanced from the rectum into the cecum, then subsequently into the terminal ileum. Quality of prep overall was very good. The patient had one diminutive polyp in the descending/sigmoid colon which was removed with the cold biopsy forceps technique. The patient had scattered diverticulosis in the left colon. No obvious active lower GI bleeding at this time. No further polyp, mass, or any pathology was seen. Retroflexion of rectum showed evidence of medium-sized internal hemorrhoids. SUMMARY OF FINDINGS: 1. Gastritis, status post biopsy. 2. One colonic polyp removed, see above for details. 3. Diverticulosis. 4. Internal hemorrhoids. RECOMMENDATIONS: 1. Follow up biopsy results and treat accordingly. 2. Treat for hemorrhoids if become symptomatic. 3. The patient needs repeat colonoscopy in 5 years. Kvng Ramirez M.D. DR: Domingo JOB#: [id number] CC:
== END 2018-03-26 10:55 | disposition home or self-care (01) ==
LOC: GAS 07:00
DX: Z12.11 Encounter for screening for malignant neoplasm of colon (principal); D12.4 Benign neoplasm of descending colon; K57.30 Diverticulosis of large intestine without perforation or abscess without bleeding; K64.8 Other hemorrhoids; K21.9 Gastro-esophageal reflux disease without esophagitis; K29.00 Acute gastritis without bleeding; K29.50 Unspecified chronic gastritis without bleeding; I10 Essential (primary) hypertension; E11.9 Type 2 diabetes mellitus without complications; E66.9 Obesity, unspecified; F41.9 Anxiety disorder, unspecified; Z79.84 Long term (current) use of oral hypoglycemic drugs; F32.9 Major depressive disorder, single episode, unspecified; Z87.19 Personal history of other diseases of the digestive system; Z87.442 Personal history of urinary calculi
CPT/HCPCS: 36415; 43239; 45380; 80053; 82962; 83540; 83550; 85025; 93005; J2250; J2704; J7120; 94003; 94150

== ENCOUNTER 2019-06-06 07:23 | Emergency (ER) | payer MEDICARE, OTHER ==
[~2019-06-06] VITALS: Ht 167.6 cm; Wt 77.1 kg
[~2019-06-06 07:23] MED LIST changes: +DOXYCYCLINE PO; +VITAMIN D400 INTLU ORAL
--- NOTE | 2019-06-06 07:36 | NUR ---
ED Nurse Note: Late entry: PT presented to ED, was brought in by friend with private vehicle, went for "earlier than usual" daily morning walk on [place], uneven sidewalk pavement caught her foot, and she fell to her R-side shoulder. PT also has R-cheek injury no drainage or bleeding approximately 1inch, PT sitting up in bed, given ice pack per PT request. PT states she has HX of cholesterol, DM, HTN, past breast cancer with lumpectomy. Will continue to monitor PT.
[2019-06-06 07:44] VITALS: BP 150/100
[2019-06-06] MEDS ORDERED: Acetaminophen 500mg (ES) tab PO ONE (07:45)
--- NOTE | 2019-06-06 07:52 | Emergency Room Report ---
History of Present Illness General Chief Complaint: Shoulder Injury Source: Patient Present Illness HPI 69-year-old female presents ED for evaluation. States that this morning while walking she had a mechanical trip and fall on the street and landed on her right shoulder. Denies hitting her head or LOC. Complaining of pain to the right shoulder. Dull, 9 out of 10, nonradiating. Is unable to raise her shoulder due to pain. Denies any other injuries. No other aggravating relieving factors. Denies any other associated symptoms Allergies: Uncoded Allergies: SURGICAL TAPE (Allergy, Intermediate, BREAST SURGERY DIDN'T HEAL, 03/26/18) TAPE (Allergy, Intermediate, Rash, 05/10/12) Patient History Past Medical History: DM, HTN Past Surgical History: none Pertinent Family History: none Social History: Denies: smoking, alcohol use, drug use Now: No Immunizations: UTD Reviewed Nursing Documentation: PMH: Agreed; PSxH: Agreed Nursing Documentation-PMH Past Medical History: No History, Except For Hx Cardiac Problems: Yes - High cholesterol Hx Hypertension: Yes Hx Diabetes: Yes Hx Cancer: Yes Hx Gastrointestinal Problems: Yes Hx Neurological Problems: No Review of Systems All Other Systems: negative except mentioned in HPI Physical Exam Vital Signs Date Time Temp Pulse Resp B/P (MAP) Pulse Ox O2 Delivery O2 Flow Rate FiO2 06/06/19 07:35 98.1 91 16 150/100 (117) 96 Room Air Sp02 EP Interpretation: reviewed, normal General Appearance: no apparent distress, alert, GCS 15, non-toxic Head: normocephalic Eyes: bilateral eye normal inspection, bilateral eye PERRL ENT: normal ENT inspection Neck: normal inspection Respiratory: normal inspection Cardiovascular #1: normal inspection Gastrointestinal: normal inspection Rectal: deferred Genitourinary: no CVA tenderness Musculoskeletal: decreased range of motion, tender - R shoulder Neurologic: alert, oriented x3, responsive, motor strength/tone normal, sensory intact, speech normal Psychiatric: normal inspection Skin: no rash Lymphatic: normal inspection Procedures Splinting Splinting : Consent: Verbal Pre-Made Type: shoulder immobilizer Pre-Proc Neuro Vasc Exam: normal Post-Proc Neuro Vasc Exam: normal Patient Tolerated: Well Complications: None Medical Decision Making Diagnostic Impression: Primary Impression: Humeral head fracture Qualified Codes: S42.291A - Other displaced fracture of upper end of right humerus, initial encounter for closed fracture ER Course Hospital Course 69 yo F presents to ED c/o R shoulder pain s/p fall Differential diagnoses include: Fracture, dislocation, sprain, contusion Clinical course Patient placed on stretcher. After initial history and physical, I ordered pain medications and Xrays of R shoulder Xrays prelim read shows deformity of R humeral head but unable to clarify nature of possible fx CT shoulder docuements comminuted R humeral head fx Discussed findings with patient. Placed in shoulder immobilizer. Will discharge to home with pain medications and outpatient orthopedic referral. Safe for discharge for close outpatient follow-up Diagnosis - humeral head fracture Stable and discharged to home with prescription for tylenol #3. apply ice, keep elevated. weight bear as tolerated. Followup with PMD/ortho. Return to ED if symptoms recur or worsen Other X-Ray Diagnostic Results Other X-Ray Diagnostic Results : X-Ray ordered: R shoulder # of Views/Limited Vs Complete: 3 View Indication: Pain Interpretation: no dislocation, no soft tissue swelling, other - ? fx humeral head Impression: Other - ? fracture Electronically Signed by: Electronically signed by Ras Roblero MD CT/MRI/US Diagnostic Results CT/MRI/US Diagnostic Results : Imaging Test Ordered: CT Sholder Impression comminuted R humeral head fx Last Vital Signs Date Time Temp Pulse Resp B/P (MAP) Pulse Ox O2 Delivery O2 Flow Rate FiO2 06/06/19 07:44 98.1 91 16 150/100 96 Room Air Status: improved Disposition: HOME, SELF-CARE Condition: Stable Scripts Acetaminophen With Codeine (T#3) (TYLENOL #3 TAB*) Y Tab 1 TAB ORAL Q8H PRN for For Pain for 3 Days, #12 TAB Prov: Ras Roblero MD 06/06/19 Ras Roblero MD Jun 06, 2019 07:52
--- NOTE | 2019-06-06 08:08 | NUR ---
ED Nurse Note: motrin given per MD order, xray currently being taken at bedside.
--- NOTE | 2019-06-06 09:08 | NUR ---
ED Nurse Note: PT back from CT, given ice pack per PT request, no S/S of respiratory distress. PT observed sleeping in bed.
[2019-06-06] MEDS ORDERED: LIPITOR40 MG ORAL (09:22)
--- NOTE | 2019-06-06 09:46 | NUR ---
ED Nurse Note: R-sling for immobilization placed on PT with SINDHU Frausto per MD order.
[2019-06-06] MEDS ORDERED: ACETAMINOPHEN-1 EAC1 ORAL (09:50)
--- NOTE | 2019-06-06 09:50 | Diagnostic Imaging Report ---
Indication: Right shoulder pain, status post fall Technique: Noncontrast spiral acquisitions obtained through the right shoulder. Multiplanar reconstructions were generated. Total dose length product 739 mGycm. CTDIvol(s) 20 mGy. Radiation dose was minimized using automated exposure control Comparison: Plain radiograph earlier the same day Findings: There is significant image evaluation due to motion artifact. There is a comminuted fracture of the right humeral head. Bony halo surrounding the posterior aspect of the humeral head presumably reflects avulsed bone. The scapula and clavicle are intact. No significant soft tissue contusion demonstrated. A right shoulder There is an irregular masslike opacity in the outer right breast with some peripheral dystrophic appearing calcifications, not well seen in part due to the motion artifact. This measures approximately 3.2 cm in diameter. Similar-appearing finding is visible on a prior abdomen pelvis CT at 11/03/2014.. Impression: Positive for comminuted right humeral head fracture. 3.2 cm opacity in the outer right breast with dystrophic calcifications. Most likely represents scar tissue related to stated clinical history of prior lumpectomy. Nonetheless, mammographic and sonographic evaluation is recommended if patient is not currently under mammographic surveillance Findings discussed by phone with Dr. Roblero at the time of interpretation The CT scanner at [facility] is accredited by the [employer] and the scans are performed using protocols designed to limit radiation exposure to as low as reasonably achievable to attain images of sufficient resolution adequate for diagnostic evaluation.
[2019-06-06 09:54] VITALS: BP 148/90
--- NOTE | 2019-06-06 09:54 | NUR ---
ER DISCHARGE NOTE: Patient is cleared to be discharged per ERMD, pt is aox4, on room air, with stable vital signs. pt was given dc and prescription instructions, pt was able to verbalize understanding, pt id band removed. pt is able to ambulate with steady gait. pt took all belongings.Per pt. her friend verenice will pick her up to drive her home.
--- NOTE | 2019-06-06 11:55 | Diagnostic Imaging Report ---
Indication: Right shoulder pain Technique: 3 views of the right shoulder Comparison: none Findings: There is a comminuted fracture of the humeral head and neck. There is an unusual rim of ossification to surrounding the humeral head. There is slight inferior displacement of the humeral head. Impression: Positive for right shoulder fracture, as described
== END 2019-06-06 09:54 | disposition home or self-care (01) ==
LOC: EMR 08:33
DX: S42.291A Other displaced fracture of upper end of right humerus, initial encounter for closed fracture (principal); E78.00 Pure hypercholesterolemia, unspecified; I10 Essential (primary) hypertension; E11.9 Type 2 diabetes mellitus without complications; Z85.9 Personal history of malignant neoplasm, unspecified; Z91.048 Other nonmedicinal substance allergy status; W01.0XXA Fall on same level from slipping, tripping and stumbling without subsequent striking against object, initial encounter; Y93.01 Activity, walking, marching and hiking; Y92.9 Unspecified place or not applicable
CPT/HCPCS: 29105; 99284